=== PATIENT | male | born 2000 | race Hispanic/Latino ===

== ENCOUNTER 2019-09-11 17:15 | Emergency (ER) | payer OTHER ==
[~2019-09-11] VITALS: Ht 175.3 cm; Wt 90.7 kg
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
[2019-09-11] MEDS ORDERED: ONDANSETRON HCL 4 MG ORAL DISINTEGRATING TAB PO STA (19:46)
[2019-09-11] MEDS ORDERED: ACETAMINOPHEN 325 MG TAB PO STA (19:46)
[2019-09-11] MEDS ORDERED: ONDANSETRON HCL 4 MG ORAL DISINTEGRATING TAB ONE (20:35)
--- NOTE | 2019-09-11 20:42 | Diagnostic Imaging Report ---
History:trauma Comparison studies: None Technique: Axial images were obtained from the skull base to the vertex. Coronal and sagittal images reconstructed from the axial data. Dose modulation, iterative reconstruction, and/or weight based adjustment of the mA/kV was utilized to reduce the radiation dose to as low as reasonably achievable. Intravenous contrast: None Findings: Scalp/skull: An acute midline parieto-occipital scalp hematoma is not associated with subcutaneous emphysema or with hyperdense foreign bodies. An acute linear nondisplaced fracture dorsal medial to the internal occipital protuberance on the right and extends inferiorly to the squamous right occipital bone and into the floor of the right posterior fossa. Extra-axial spaces: A 6 mm acute epidural hematoma, inseparable from the torcular is not associated with mass effect (series 400, image 29, series 2, image 14). No additional. Fracture hematomas or fluid collections Brain sulci: Appropriate for age Ventricles: Normal size and configuration. No hydrocephalus. Parenchyma: Multiple subcentimeter medial orbital frontal hemorrhagic contusions are surrounded by vasogenic edema but mass effect is regional. No additional abnormal densities. Specifically, no masses, or additional acute or chronic cortical vascular insults. Sellar/suprasellar region: No abnormalities. Craniocervical junction: Patent foramen magnum. No Chiari one malformation. Incidental findings: Scattered mucosal thickening throughout the paranasal sinuses Impression: 1. An acute midline parieto-occipital scalp hematoma is associated with a nondisplaced fracture in the underlying right occipital bone and with a focal right occipital epidural hematoma without mass effect. 2. Acute contrecoup inferomedial frontal hemorrhagic contusions are not associated with mass effect. 3. Partial hemorrhagic opacification of the sphenoid sinuses 4. No additional intracranial abnormalities 5. Dr. Cruz notified of the findings on 09/11/2019 at 2037 hours. Signed by: Dr. Michele Jaquez M.D. on 09/11/2019 8:38 PM
[2019-09-11 21:03] LABS: BASOPHILS % 0.2 % (0.0-1.0); HEMATOCRIT 44.5 % (38.2-49.6); HEMOGLOBIN 15.4 g/dL (14.0-18.0); LYMPHOCYTES # (AUTO) 0.5 (1.0-3.2); LYMPHOCYTES % 3.1 % (18.0-39.1); MEAN CORPUSCULAR HEMOGLOBIN 28.7 pg (28-32); MEAN CORPUSCULAR HGB CONC 34.6 g/dL (31-35); MEAN CORPUSCULAR VOLUME 82.9 fL (81-99); MONOCYTES # (AUTO) 0.9 (0.2-0.8); MONOCYTES % 5.4 % (4.4-11.3); NEUTROPHILS # (AUTO) 14.2 (2.1-6.9); NEUTROPHILS % 90.3 % (38.7-80.0); PLATELET COUNT 284 x10e3/uL (140-360); RED BLOOD COUNT 5.37 x10e6/uL (4.3-5.7); RED CELL DISTRIBUTION WIDTH 12.5 % (11.7-14.4)
[2019-09-11] MEDS ORDERED: SODIUM CHLORIDE 0.9% 1000ML 1,000 ML IV SCH (21:15)
[2019-09-11] MEDS ORDERED: CEFAZOLIN SOD 1 GM/NS 50ML 50 ML IV ONE (21:15)
[2019-09-11 21:19] LABS: ALANINE AMINOTRANSFERASE 28 IU/L (0-55); ALBUMIN/GLOBULIN RATIO 1.2 (0.8-2.0); ALKALINE PHOSPHATASE 108 IU/L (40-150); ANION GAP 19.3 mmol/L (8-16); BLOOD UREA NITROGEN 12 mg/dL (7-26); BUN/CREATININE RATIO 15 (6-25); CALCIUM 10.3 mg/dL (8.4-10.2); CARBON DIOXIDE 23 mmol/L (22-29); CHLORIDE 99 mmol/L (98-107); CREATININE, SERUM 0.82 mg/dL (0.72-1.25); EST GLOMERULAR FILTRATION RATE > 60 ML/MIN (60-); GLUCOSE 139 mg/dL (74-118); POTASSIUM 3.3 mmol/L (3.5-5.1); SODIUM 138 mmol/L (136-145)
[2019-09-11] MEDS ORDERED: LEVETIRACETAM 500MG/5ML VIAL 500 MG in SODIUM CHLORIDE 0.9% 100 ML 100 ML IV SCH (21:45)
[2019-09-12 00:42] VITALS: BP 128/65
== END 2019-09-11 23:00 | disposition other institution (70) ==
LOC: ER 18:19
DX: S02.11GA Other fracture of occiput, right side, initial encounter for closed fracture (principal); S00.83XA Contusion of other part of head, initial encounter; R11.2 Nausea with vomiting, unspecified; Y04.8XXA Assault by other bodily force, initial encounter
CPT/HCPCS: 36415; 70450; 80053; 85025; 93005; 96365; 99284; J0690; J1953; J7030; Q0162